=== PATIENT | female | born 2000 | race Caucasian/White ===

== ENCOUNTER 2020-06-13 21:34 | Emergency (ER) | payer BC ==
--- NOTE | 2020-06-13 21:51 | EDM.PDOC ---
ED HPI GENERAL MEDICAL PROBLEM - General Chief Complaint: Abdominal Pain Stated Complaint: CHEST PAIN/SOB/BACK PAIN Time Seen by Provider: 06/13/20 21:50 - History of Present Illness INITIAL COMMENTS - FREE TEXT/NARRATIVE: 19-year-old female presents the emergency room with abdominal pain and back pain. This is aggravated by eating and really got worse this evening. Apparently she had natcho cheese and meat with supper and the patient's been worked up for upper abdominal pain and has seen Dr. Bower. She has had a ultrasound at [facility] that has shown gallstones. She is not had any fevers or chills no vomiting just worsening pain the pain is right upper quadrant seems to radiate into her back. Upper Abdomen Pain Score (Numeric/FACES): 4 - Related Data Allergies Allergy/AdvReac Type Severity Reaction Status Date / Time No Known Allergies Allergy Verified 06/13/20 21:53 Home Meds: Home Meds . [No Known Home Meds] 06/13/20 [History] ED ROS GENERAL - Review of Systems Review Of Systems: See Below Constitutional: Reports: No Symptoms HEENT: Reports: No Symptoms Respiratory: Reports: Shortness of Breath (Is aggravated by taking deep breaths and chest wall pain) Cardiovascular: Reports: No Symptoms Endocrine: Reports: No Symptoms GI/Abdominal: Reports: Abdominal Pain, Constipation, Diarrhea, Nausea Musculoskeletal: Reports: Back Pain Neurological: Reports: No Symptoms ED EXAM, GENERAL - Physical Exam Exam: See Below Exam Limited By: No Limitations General Appearance: Alert, No Apparent Distress Head: Atraumatic, Normocephalic Neck: Normal Inspection, Supple, Non-Tender, Full Range of Motion Respiratory/Chest: No Respiratory Distress, Lungs Clear, Normal Breath Sounds Cardiovascular: Regular Rate, Rhythm, No Edema, No Murmur GI/Abdominal: Normal Bowel Sounds, Soft, Tender (Some right upper quadrant tenderness with less prominent epigastric discomfort and right lower quadrant tenderness no rigidity rebound or guarding noted the pain in the right upper quadrant seems to radiate into her right back just below the scapula. Back pain is aggravated with palpation of the ri) Back Exam: Normal Inspection. No: CVA Tenderness (L), CVA Tenderness (R) Extremities: Normal Inspection Neurological: Alert, Oriented Lymphatic: No Adenopathy Course - Vital Signs Last Recorded V/S: Last Vital Signs Temp 36.7 C 06/13/20 21:57 Pulse 65 06/13/20 21:57 Resp 20 06/13/20 21:57 BP 121/77 06/13/20 21:57 Pulse Ox 100 06/13/20 21:57 - Orders/Labs/Meds Orders: Active Orders 24 hr Category Date Time Status Chest 1V Frontal [CR] Stat Exams 06/13/20 23:00 Taken CULTURE URINE [RM] Stat Lab 06/13/20 22:45 Received Labs: Laboratory Tests 06/13/20 06/13/20 06/13/20 Range/Units 22:45 22:56 22:56 WBC 9.72 (3.98-10.04) K/mm3 RBC 5.21 (3.98-5.22) M/mm3 Hgb 14.2 (11.2-15.7) gm/dl Hct 42.6 (34.1-44.9) % MCV 81.8 (79.4-94.8) fl MCH 27.3 (25.6-32.2) pg MCHC 33.3 (32.2-35.5) g/dl RDW Std Deviation 37.9 (36.4-46.3) fL Plt Count 289 (182-369) K/mm3 MPV 10.8 (9.4-12.3) fl Neut % (Auto) 54.5 (34.0-71.1) % Lymph % (Auto) 33.1 (19.3-51.7) % [place] % (Auto) 8.7 (4.7-12.5) % Eos % (Auto) 2.7 (0.7-5.8) Baso % (Auto) 0.7 (0.1-1.2) % Neut # (Auto) 5.29 (1.56-6.13) K/mm3 Lymph # (Auto) 3.22 (1.18-3.74) K/mm3 [place] # (Auto) 0.85 H (0.24-0.36) K/mm3 Eos # (Auto) 0.26 (0.04-0.36) K/mm3 Baso # (Auto) 0.07 (0.01-0.08) K/mm3 Sodium 143 (136-145) mEq/L Potassium 3.5 (3.5-5.1) mEq/L Chloride 101 (98-107) mEq/L Carbon Dioxide 28 (21-32) mEq/L Anion Gap 17.5 H (5-15) BUN 19 H (7-18) mg/dL Creatinine 1.0 (0.55-1.02) mg/dL Est Cr Clr Drug Dosing 84.71 mL/min Estimated GFR (MDRD) > 60 (>60) mL/min BUN/Creatinine Ratio 19.0 H (14-18) Glucose 80 (74-106) mg/dL Calcium 9.9 (8.5-10.1) mg/dL Total Bilirubin 0.6 (0.2-1.0) mg/dL Direct Bilirubin 0.30 H (0.0-0.2) mg/dl AST 84 H (15-37) U/L ALT 48 (14-59) U/L Alkaline Phosphatase 109 (46-116) U/L Total Protein 9.0 H (6.4-8.2) g/dl Albumin 4.4 (3.4-5.0) g/dl Globulin 4.6 gm/dL Albumin/Globulin Ratio 1.0 (1-2) Lipase 136 (73-393) U/L HCG, Qual (NEGATIVE) Urine Color Yellow (Yellow) Urine Appearance Clear (Clear) Urine pH 8.0 (5.0-8.0) Ur Specific [place] 1.020 (1.005-1.030) Urine Protein Negative (Negative) Urine Glucose (UA) Negative (Negative) Urine Ketones Negative (Negative) Urine Occult Blood Negative (Negative) Urine Nitrite Negative (Negative) Urine Bilirubin Negative (Negative) Urine Urobilinogen 0.2 (0.2-1.0) Ur Leukocyte Esterase 2+ H (Negative) Urine RBC 0-5 (0-5) /hpf Urine WBC 5-10 H (0-5) /hpf Ur Squamous Epith Cells 0-5 (0-5) /hpf Urine Bacteria Few (FEW) /hpf Urine Mucus Few (FEW) /hpf 06/13/20 Range/Units 22:56 WBC (3.98-10.04) K/mm3 RBC (3.98-5.22) M/mm3 Hgb (11.2-15.7) gm/dl Hct (34.1-44.9) % MCV (79.4-94.8) fl MCH (25.6-32.2) pg MCHC (32.2-35.5) g/dl RDW Std Deviation (36.4-46.3) fL Plt Count (182-369) K/mm3 MPV (9.4-12.3) fl Neut % (Auto) (34.0-71.1) % Lymph % (Auto) (19.3-51.7) % [place] % (Auto) (4.7-12.5) % Eos % (Auto) (0.7-5.8) Baso % (Auto) (0.1-1.2) % Neut # (Auto) (1.56-6.13) K/mm3 Lymph # (Auto) (1.18-3.74) K/mm3 [place] # (Auto) (0.24-0.36) K/mm3 Eos # (Auto) (0.04-0.36) K/mm3 Baso # (Auto) (0.01-0.08) K/mm3 Sodium (136-145) mEq/L Potassium (3.5-5.1) mEq/L Chloride (98-107) mEq/L Carbon Dioxide (21-32) mEq/L Anion Gap (5-15) BUN (7-18) mg/dL Creatinine (0.55-1.02) mg/dL Est Cr Clr Drug Dosing mL/min Estimated GFR (MDRD) (>60) mL/min BUN/Creatinine Ratio (14-18) Glucose (74-106) mg/dL Calcium (8.5-10.1) mg/dL Total Bilirubin (0.2-1.0) mg/dL Direct Bilirubin (0.0-0.2) mg/dl AST (15-37) U/L ALT (14-59) U/L Alkaline Phosphatase (46-116) U/L Total Protein (6.4-8.2) g/dl Albumin (3.4-5.0) g/dl Globulin gm/dL Albumin/Globulin Ratio (1-2) Lipase (73-393) U/L HCG, Qual Negative (NEGATIVE) Urine Color (Yellow) Urine Appearance (Clear) Urine pH (5.0-8.0) Ur Specific [place] (1.005-1.030) Urine Protein (Negative) Urine Glucose (UA) (Negative) Urine Ketones (Negative) Urine Occult Blood (Negative) Urine Nitrite (Negative) Urine Bilirubin (Negative) Urine Urobilinogen (0.2-1.0) Ur Leukocyte Esterase (Negative) Urine RBC (0-5) /hpf Urine WBC (0-5) /hpf Ur Squamous Epith Cells (0-5) /hpf Urine Bacteria (FEW) /hpf Urine Mucus (FEW) /hpf - Re-Assessments/Exams Free Text/Narrative Re-Assessment/Exam: 06/14/20 00:44 Reviewed the labs from this evening. I could never get old records of the gallbladder ultrasound however I did get the records from the EGD that looked fairly unrevealing. Labs are assuring and that she has a normal white count the only liver study that subtle line is his direct bili is 0.3 his total bili is 0.6 and AST is elevated at 84. I did review the results of this with Dr. Mi who thinks the patient could follow-up with Dr. Bower in the very near future. Departure - Departure Time of Disposition: 00:48 Disposition: Home, Self-Care 01 Clinical Impression: Cholelithiasis - Discharge Information Referrals: Anita Bower MD [Primary Care Provider] - Forms: ED Department Discharge Additional Instructions: Return to the emergency room with any questions problems or worsening symptoms. Follow-up with Dr. Bower in the next day or 2 call first thing in the morning for an appointment. Push lots of fluids. Avoid anything fatty or greasy or meaty. Tylenol as needed for discomfort Sepsis Event Note (ED) - Focused Exam Vital Signs: Vital Signs Temp Pulse Resp BP Pulse Ox 06/13/20 21:57 36.7 C 65 20 121/77 100 - My Orders Last 24 Hours: My Active Orders 06/13/20 22:45 CULTURE URINE [RM] Stat 06/13/20 23:00 Chest 1V Frontal [CR] Stat - Assessment/Plan Last 24 Hours: My Active Orders 06/13/20 22:45 CULTURE URINE [RM] Stat 06/13/20 23:00 Chest 1V Frontal [CR] Stat
--- NOTE | 2020-06-14 08:21 | CR ---
Chest: Portable view of the chest was obtained. Comparison: No prior chest imaging is available. Heart size and mediastinum are within normal limits. Lungs are clear with no acute parenchymal change. Bony structure shows nothing acute. Impression: 1. Nothing acute is seen on frontal chest x-ray. Diagnostic code #1
== END 2020-06-14 00:56 | disposition home or self-care (01) ==
LOC: JD.ED 21:34
DX: K80.20 Calculus of gallbladder without cholecystitis without obstruction (principal)
CPT/HCPCS: 36415; 71045; 71045-26; 80053; 81001; 82248; 83690; 84703; 85025; 87086; 87088; 99283; 99284-25

== ENCOUNTER 2020-10-20 10:16 | Emergency (ER) | payer BC ==
[2020-10-20] MEDS ORDERED: Sodium Chloride 0.9% 10 ML Syringe FLUSH PRN (11:24)
--- NOTE | 2020-10-20 12:00 | EDM.PDOC ---
ED HPI GENERAL MEDICAL PROBLEM - General Chief Complaint: ICU TECH Problem Stated Complaint: 8 WEEKS PREG AND BLEEDING Time Seen by Provider: 10/20/20 11:06 Source of Information: Reports: Patient History Limitations: Reports: No Limitations - History of Present Illness INITIAL COMMENTS - FREE TEXT/NARRATIVE: 20-year-old female presents to the emergency department with complaints of vaginal bleeding at 8 weeks of . Patient is a 2 para 1. She states she is 8 weeks . Last menstrual period was on August 23, 2020. Patient states she has not had her first visit with her ICU TECH as of yet. She states that she plans to see her provider that delivered her first child who is located at [facility] in [place]. She states that she has had a healthy thus far. She has not had any recent fever, chills, nausea, vomiting, diarrhea or urinary symptoms. 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 She states she did not think much of it and did have some slight cramping before she went to bed last evening however that had resolved once she woke up this morning. She states that she went to work this morning and was again assisting a resident out of bed and noticed the same cramping. She states she then went to the bathroom and noticed she had spotting in her underwear. She states she sat on the toilet and then bled into the toilet for a short bit. She states this occurred about an hour prior to arrival. She has not gone through more than 1 pad in the past hour and 15 minutes. She denies passing any clots. She states that she did have cramping at the time of the spotting however this has resolved as well. Lower Abdomen Pain Score (Numeric/FACES): 2 - Related Data Allergies Allergy/AdvReac Type Severity Reaction Status Date / Time No Known Allergies Allergy Verified 06/13/20 21:53 Home Meds: Home Meds . [No Known Home Meds] 06/13/20 [History] Past Medical History Gastrointestinal History: Reports: Cholelithiasis, Other (See Below) Other Gastrointestinal History: ulcer to stomach ICU TECH History: Reports: Other ICU TECH History: 2nd - Infectious Disease History Infectious Disease History: Reports: None - Past Surgical History GI Surgical History: Reports: Cholecystectomy Social & Family History - Tobacco Use Tobacco Use Status *Q: Never Tobacco User - Caffeine Use Caffeine Use: Reports: None - Recreational Drug Use Recreational Drug Use: No ED ROS GENERAL - Review of Systems Review Of Systems: Comprehensive ROS is negative, except as noted in HPI. ED EXAM - Physical Exam Exam: See Below Exam Limited By: No Limitations General Appearance: Alert, WD/WN, No Apparent Distress Ears: Normal External Exam, Hearing Grossly Normal Nose: Normal Inspection Throat/Mouth: Normal Inspection, Normal Lips, Normal Voice, No Airway Compromise Head: Atraumatic Neck: Normal Inspection, Supple Respiratory/Chest: No Respiratory Distress, Lungs Clear, Normal Breath Sounds, No Accessory Muscle Use, Chest Non-Tender Cardiovascular: Normal Peripheral Pulses, Regular Rate, Rhythm, No Edema, No Murmur GI/Abdominal Exam: Normal Bowel Sounds, Soft, Non-Tender, No Distention Rectal Exam: Deferred Back Exam: Normal Inspection Extremities: Normal Inspection Neurological: Alert, Oriented, Normal Cognition Psychiatric: Normal Affect, Normal Mood Skin Exam: Warm, Dry, Intact, Normal Color, No Rash Lymphatic: No Adenopathy Course - Vital Signs Text/Narrative:: As stated above, patient presents with cramping and vaginal spotting that started about an hour prior to arrival to the emergency department. She is approximately 8 weeks with her second child. She is a 2 para 1. Exam is essentially unremarkable and she is hemodynamically stable. Ordered labs to include a CBC, CMP, magnesium level, and a quantitative hCG. We will start a saline lock. Obtain a urinalysis with micro and culture if indicated. And obtain a transvaginal ultrasound. Last Recorded V/S: Last Vital Signs Temp 98.3 F 10/20/20 10:49 Pulse 70 10/20/20 10:49 Resp 20 10/20/20 10:49 BP 133/72 10/20/20 10:49 Pulse Ox 100 10/20/20 10:49 - Orders/Labs/Meds Orders: Active Orders 24 hr Category Date Time Status OB Transvaginal [US] Stat Exams 10/20/20 11:24 Taken Sodium Chloride 0.9% [Saline Flush] Med 10/20/20 11:24 Active 10 ml FLUSH ASDIRECTED PRN Saline Lock Insert [OM.PC] Stat Oth 10/20/20 11:24 Ordered Medication Orders Sodium Chloride (Sodium Chloride 0.9% 10 Ml Syringe) 10 ml FLUSH ASDIRECTED PRN PRN Reason: Keep Vein Open Last Admin: 10/20/20 11:55 Dose: 10 ml Documented by: TERRY Labs: Laboratory Tests 10/20/20 10/20/20 10/20/20 Range/Units 11:40 11:40 12:00 WBC 7.26 (3.98-10.04) K/mm3 RBC 4.97 (3.98-5.22) M/mm3 Hgb 13.5 (11.2-15.7) gm/dl Hct 40.6 (34.1-44.9) % MCV 81.7 (79.4-94.8) fl MCH 27.2 (25.6-32.2) pg MCHC 33.3 (32.2-35.5) g/dl RDW Std Deviation 38.7 (36.4-46.3) fL Plt Count 267 (182-369) K/mm3 MPV 10.4 (9.4-12.3) fl Neut % (Auto) 60.4 (34.0-71.1) % Lymph % (Auto) 27.3 (19.3-51.7) % [place] % (Auto) 10.2 (4.7-12.5) % Eos % (Auto) 1.2 (0.7-5.8) Baso % (Auto) 0.6 (0.1-1.2) % Neut # (Auto) 4.39 (1.56-6.13) K/mm3 Lymph # (Auto) 1.98 (1.18-3.74) K/mm3 [place] # (Auto) 0.74 H (0.24-0.36) K/mm3 Eos # (Auto) 0.09 (0.04-0.36) K/mm3 Baso # (Auto) 0.04 (0.01-0.08) K/mm3 Sodium 142 (136-145) mEq/L Potassium 3.8 (3.5-5.1) mEq/L Chloride 106 (98-107) mEq/L Carbon Dioxide 27 (21-32) mEq/L Anion Gap 12.8 (5-15) BUN 18 (7-18) mg/dL Creatinine 0.8 (0.55-1.02) mg/dL Est Cr Clr Drug Dosing 109.08 mL/min Estimated GFR (MDRD) > 60 (>60) mL/min BUN/Creatinine Ratio 22.5 H (14-18) Glucose 90 (70-99) mg/dL Calcium 8.9 (8.5-10.1) mg/dL Magnesium 2.1 (1.8-2.4) mg/dL Total Bilirubin 0.5 (0.2-1.0) mg/dL AST 16 (15-37) U/L ALT 21 (14-59) U/L Alkaline Phosphatase 77 (46-116) U/L Total Protein 8.2 (6.4-8.2) g/dl Albumin 4.0 (3.4-5.0) g/dl Globulin 4.2 gm/dL Albumin/Globulin Ratio 1.0 (1-2) HCG, Quant < 1.0 mIU/mL Urine Color Yellow (Yellow) Urine Appearance Clear (Clear) Urine pH 5.5 (5.0-8.0) Ur Specific [place] > or = 1.030 (1.005-1.030) Urine Protein Negative (Negative) Urine Glucose (UA) Negative (Negative) Urine Ketones Negative (Negative) Urine Occult Blood Negative (Negative) Urine Nitrite Negative (Negative) Urine Bilirubin Negative (Negative) Urine Urobilinogen 0.2 (0.2-1.0) Ur Leukocyte Esterase Negative (Negative) Meds: Medications Generic Name Dose Route Start Last Admin Trade Name Freq PRN Reason Stop Dose Admin Sodium Chloride 10 ml 10/20/20 11:24 10/20/20 11:55 Sodium Chloride 0.9% 10 Ml Syringe FLUSH 10 ml ASDIRECTED PRN Administration Keep Vein Open - Re-Assessments/Exams Free Text/Narrative Re-Assessment/Exam: 10/20/20 13:30 Hematology is essentially unremarkable, chemistry also unremarkable, quantitative hCG is less than 1.0 Urinalysis is unremarkable V rad radiologist phoned me regarding ultrasound results: 1. Normal nongravid uterus. No gestational sac, yolk sac or embryonic pole identified within the uterus. Adjacent minimal free fluid. 2. Right ovarian isoechoic complex cyst versus mass measuring 3.1 x 2.1 x 3.2 cm. Correlate with serial beta hCGs and close interval ultrasound follow-up. 10/20/20 13:37 Discussed the results with the patient and the likeliness that the patient will not reach term. Recommended that she follow-up with her ICU TECH later this week or return to the emergency department should she develop heavy vaginal bleeding, passing of clots or significant cramping. Patient does verbalize understanding. Departure - Departure Time of Disposition: 13:39 Disposition: Home, Self-Care 01 Condition: Good Clinical Impression: Threatened - Discharge Information Instructions: Threatened Miscarriage, [id number], Pain Medicine Instructions, [id number] Referrals: Carlee Scott MD [Primary Care Provider] - Forms: ED Department Discharge Additional Instructions: You were seen in the emergency department today with vaginal bleeding and cramping. Labs were completed which included an hCG level. At this time your level should be 15,000-200,000 have the results today were less than 1. Ultrasound that was completed did not show any embryo or uterine pole or yolk sac within the uterus. There is a questionable cyst on the ovary. Go home, rest and drink plenty of fluids. You will likely have some cramping and vaginal bleeding due to miscarriage. Should you have heavy bleeding, going through more than 1 pad every 15 minutes x 3, it is recommended you be seen in the emergency department. Should you have large clots that you are passing it is also recommended that you return to the emergency department. Should you have severe cramping it is also recommended that you come to the emergency department. Recommend that you follow-up with your ICU TECH by the end of this next week for reevaluation. Sepsis Event Note (ED) - Focused Exam Vital Signs: Vital Signs Temp Pulse Resp BP Pulse Ox 10/20/20 10:49 98.3 F 70 20 133/72 100 - My Orders Last 24 Hours: My Active Orders 10/20/20 11:24 OB Transvaginal [US] Stat Sodium Chloride 0.9% [Saline Flush] 10 ml FLUSH ASDIRECTED PRN Saline Lock Insert [OM.PC] Stat - Assessment/Plan Last 24 Hours: My Active Orders 10/20/20 11:24 OB Transvaginal [US] Stat Sodium Chloride 0.9% [Saline Flush] 10 ml FLUSH ASDIRECTED PRN Saline Lock Insert [OM.PC] Stat
--- NOTE | 2020-10-21 16:40 | US ---
First trimester obstetrical ultrasound: Multiple real-time images were obtained transvaginally. Comparison: No previous study for current is available. Uterus is anteverted. Endometrial thickness is normal. No evidence of intrauterine . Right ovary shows a small abnormality measuring 3.1 x 2.1 x 3.2 cm either due to hemorrhagic cyst or solid lesion. Left ovary is normal. Small amount of free fluid is seen within the pelvis. Impression: 1. No findings of intrauterine . 2. Finding within the right ovary measuring up to 3.2 cm either due to hemorrhagic cyst or small mass. Follow-up study recommended in 6 months to further evaluate. 3. Small amount of free fluid is seen within the pelvis. Diagnostic code #2 I agree with preliminary report from taylor, finalized on 10/20/20, 2:10 PM CDT, code 1
== END 2020-10-20 14:11 | disposition home or self-care (01) ==
LOC: JD.ED 10:16
DX: O20.0 Threatened abortion (principal); Z3A.08 8 weeks gestation of pregnancy
CPT/HCPCS: 36415; 76817; 76817-26; 80053; 81003; 83735; 84702; 85025; 99283; 99284-25